=== PATIENT | male | born 1965 | race Caucasian/White ===

== ENCOUNTER 2018-03-26 06:33 | Day surgery (SDC) | payer BC ==
[2018-03-26] MEDS ORDERED: LIDOCAINE 2% MDV (20MG/ML) 20ML VIAL IV ONE (06:34)
[2018-03-26] MEDS ORDERED: PROPOFOL 10 MG/ML VIAL IV ONE (06:34)
--- NOTE | 2018-03-29 12:40 | Operative Note ---
DATE OF SURGERY: 03/26/2018 SURGEON: Cassie Burkett MD OPERATION: COLONOSCOPY. INDICATIONS: This is a 52-year-old male with average risk for colorectal cancer who presented for screening colonoscopy. POSTOPERATIVE DIAGNOSES: 1. A 3 mm descending colon polyp that was removed by cold biopsy forceps. 2. A 3 mm sessile polyp in the sigmoid colon that was removed by cold biopsy forceps. ANESTHESIA: Sedation is per Anesthesia. Pulse oximetry was monitored throughout the procedure to maintain O2 saturation of 90% or greater. Supplemental oxygen was administered via nasal cannula. Cardiac and vital signs were monitored throughout the duration of the procedure, and they were stable. The procedure of colonoscopy and risks and alternatives of the procedure, including the risk of bleeding and perforation, among others, were explained to the patient who voiced understanding and agreed to have the procedure done. Physical examination was performed, and the patient was found stable for sedation. PROCEDURE: The patient was placed in the left lateral position. Sedation was initiated. A digital rectal exam was performed and showed some external hemorrhoids with no palpable rectal masses. An Olympus PCF-180AL colonoscope was then inserted into the rectum under direct visualization. It was advanced to the cecum without difficulty. The ileocecal valve and appendiceal orifice were identified and photographed. The colonic mucosa was carefully examined upon introduction of the colonoscope. There were no lesions noted. The bowel preparation was good. The colonoscope was then withdrawn while carefully examining the colonic mucosal surfaces. The cecum, ascending colon, and transverse colon appeared normal. In the descending colon was a 3 mm sessile polyp that was noted and was removed by cold biopsy forceps. In the sigmoid colon was another 3 mm polyp that was removed by cold biopsy forceps. There were no other lesions noted. The colonoscope was then withdrawn into the rectum. Retroflexion was performed and grade 1 internal hemorrhoids were noted. The colonoscope was then withdrawn and the procedure was terminated. The patient tolerated the procedure well without any immediate complications. The patient remained with stable vital signs and was transferred to the recovery room. RECOMMENDATIONS: 1. The patient should be on a high-fiber diet. 2. The patient is to have a repeat colonoscopy for surveillance in 5 or 10 years depending on the histology of the polyps. Thank you for allowing me to participate in the care of your patient. CC: MD DENNY Tran
== END 2018-03-26 08:40 | disposition home or self-care (01) ==
LOC: HOP 06:33
PROVIDERS: ATTEND Internal Medicine Gastroenterology
DX: Z12.11 Encounter for screening for malignant neoplasm of colon (principal); D12.4 Benign neoplasm of descending colon; D12.5 Benign neoplasm of sigmoid colon

== ENCOUNTER 2019-06-25 19:13 | Emergency (ER) | payer BC ==
--- NOTE | 2019-06-25 19:52 | Emergency Department Record ---
History of Present Illness - General Chief Complaint: Fall Injury Stated Complaint: FELL 10 FT FROM TREE STAND Time Seen by Provider: 06/25/19 19:37 Source: Patient, Family Mode of Arrival: Ambulatory Limitations: No limitations - History of Present Illness Initial Comments: pt fell 10 ft out of a tree blind 30hrs ago. he landed on his back. he did not hit his head or injure his neck. he has pain in his luq and l flank. 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: No Place Fall Occurred: Home Loss of Consciousness: None Prolonged Down Time?: No Symptoms Prior to Fall: None Location: Back, Abdomen Severity scale (1-10): 7 Quality: Aching, Stabbing Associated Symptoms: Abdominal pain - [place] Coma Scale Eye Response: (4) Open spontaneously Motor Response: (6) Obeys commands Verbal Response: (5) Oriented Chanel Total: 15 - Related Data Allergies Allergy/AdvReac Type Severity Reaction Status Date / Time penicillin Allergy PT UNSURE Unverified 04/23/18 10:54 OF REACTION venom-honey bee Allergy CHEST PAIN Unverified 04/23/18 10:54 [bee venom (honey bee)] Travel Screening - Travel/Exposure Within Last 30 Days Have you traveled within the last 30 days?: No - Travel/Exposure Within Last Year Have you traveled outside the [place] in the last year?: No - Additonal Travel Details Have you been exposed to anyone with a communicable illness?: No - Travel Symptoms Symptom Screening: None Review of Systems Reviewed: No additional complaints except as noted below Constitutional: Reports: As per HPI. Denies: Chills, Fever, Malaise, Night sweats, Weakness, Weight change Eyes: Reports: As per HPI. Denies: Eye discharge, Eye pain, Photophobia, Vision change ENT: Reports: As per HPI. Denies: Congestion, Dental pain, Ear pain, Epistaxis, Hearing loss, Throat pain Respiratory: Reports: As per HPI. Denies: Cough, Dyspnea, Hemoptysis, Stridor, Wheezes Cardiovascular: Reports: As per HPI. Denies: Arrhythmia, Chest pain, Dyspnea on exertion, Edema, Murmurs, Orthopnea, Palpitations, Paroxysmal nocturnal dyspnea, Rheumatic Fever, Syncope Endocrine: Reports: As per HPI. Denies: Fatigue, Heat or cold intolerance, Polydipsia, Polyuria Gastrointestinal: Reports: As per HPI, Abdominal pain. Denies: Constipation, Diarrhea, Hematemesis, Hematochezia, Melena, Nausea, Vomiting Genitourinary: Reports: As per HPI. Denies: Dysuria, Frequency, Hematuria, Incontinence, Retention, Testicular pain, Testicular mass, Urgency Musculoskeletal: Reports: As per HPI. Denies: Arthralgia, Back pain, Gout, Joint swelling, Myalgia, Neck pain Skin: Reports: As per HPI. Denies: Bruising, Change in color, Change in hair/nails, Lesions, Pruritus, Rash Neurological: Reports: As per HPI. Denies: Abnormal gait, Confusion, Headache, Numbness, Paresthesias, Seizure, Tingling, Tremors, Vertigo, Weakness Psychiatric: Reports: As per HPI. Denies: Anxiety, Auditory hallucinations, Depression, Homicidal thoughts, Suicidal thoughts, Visual hallucinations Hematological/Lymphatic: Reports: As per HPI. Denies: Anemia, Blood Clots, Easy bleeding, Easy bruising, Swollen glands Past Medical History - SOCIAL HISTORY Smoking Status: Current every day smoker Alcohol Use: None Drug Use: None - RESPIRATORY Hx Respiratory Disorders: Yes Hx Sleep Apnea: Yes Hx of CPAP: Yes - CARDIOVASCULAR Hx Cardio Disorders: No - NEURO Hx Neuro Disorders: Yes Hx Neuropathy: Yes (hands) - GI Hx GI Disorders: Yes Hx Pancreatitis: Yes Hx Rectal Bleeding: Yes (hemorrhoids) - Hx Genitourinary Disorders: Yes Hx Kidney Stones: Yes - ENDOCRINE Hx Endocrine Disorders: No - MUSCULOSKELETAL Hx Musculoskeletal Disorders: No - PSYCH Hx Psych Problems: No - HEMATOLOGY/ONCOLOGY Hx Hematology/Oncology Disorders: No Family Medical History Any Significant Family History?: Yes Hx Cancer: Mother *Cancer Comment: ovarian Hx Diabetes: Father, Mother *Diabetes Comment: hypo-glycemia- mother Hx HTN: Father Hx Stroke: Grandparents Physical Exam - General General Appearance: Alert, Oriented x3, Cooperative, Mild distress - Head Head exam: Normal inspection - Eye Eye exam: Normal appearance, PERRL, EOMI Pupils: Normal accommodation - ENT ENT exam: Normal exam, Mucous membranes moist, Normal external ear exam, Normal orophraynx Ear exam: Normal external inspection. negative: External canal tenderness Nasal Exam: Normal inspection. negative: Discharge, Sinus tenderness Mouth exam: Normal external inspection, Tongue normal Teeth exam: Normal inspection. negative: Dental caries Throat exam: Normal inspection. negative: Tonsillar erythema, Tonsillar exudate - Neck Neck exam: Normal inspection, Full ROM. negative: Tenderness - Respiratory Respiratory exam: Normal lung sounds bilaterally. negative: Respiratory distress - Cardiovascular Cardiovascular Exam: Regular rate, Normal rhythm, Normal heart sounds - GI/Abdominal GI/Abdominal exam: Soft, Normal bowel sounds, Tenderness - Rectal Rectal exam: Deferred - exam: Deferred - Extremities Extremities exam: Normal inspection, Full ROM, Normal capillary refill. negative: Tenderness - Back Back exam: Reports: CVA tenderness (L), Full ROM, Muscle spasm, Paraspinal tenderness, Tenderness. Denies: Rash noted - Neurological Neurological exam: Alert, CN II-XII intact, Normal gait, Oriented X3 - Psychiatric Psychiatric exam: Normal affect, Normal mood - Skin Skin exam: Dry, Intact, Normal color, Warm Course Vital Signs 06/25/19 19:25 Temperature 98.8 F Pulse Rate [ 75 Left] Respiratory 16 Rate Blood Pressure 164/93 [Left Arm] Pulse Ox 95 Medical Decision Making - Lab Data Result diagrams: 06/25/19 20:00 06/25/19 19:41 Disposition Disposition: Discharge Clinical Impression: Multiple contusions of trunk Qualifiers: Encounter type: initial encounter Qualified Code(s): S20.20XA - Contusion of thorax, unspecified, initial encounter Disposition: Home, Self-Care Condition: (1) Good Instructions: Contusion in Adults (ED) Additional Instructions: follow up with family doctor. return sooner if worse. ice to sore areas. motrin with food Forms: Patient Portal Access Quality - Quality Measures Quality Measures: N/A - Blood Pressure Screening Does Patient Have Any of the Following: No Blood Pressure Classification: Hypertensive Reading Systolic Measurement: 164 Diastolic Measurement: 93 Screening for High Blood Pressure: < First Hypertensive BP, F/U Documented > [[id number]] First Hypertensive Follow-up Interventions: Follow-up with rescreen GT 1 day and LT 4 weeks.
[2019-06-25 20:15] LABS: ABSOLUTE NEUTROPHIL COUNT 6.43; BASO % 0.5 % (0-6); EOS % 2.5 % (0-6); GRAN % 62.9 % (47-80); HEMATOCRIT 44.7 % (42.0-52.0); HEMOGLOBIN 14.6 gm/dl (14.0-18.0); LYMPH % 27.2 % (16-45); MEAN CELL VOLUME 93.9 fl (81-97); MEAN CORPUSCULAR HEMOGLOBIN 30.7 pg (27-33); MEAN CORPUSCULAR HGB CONC 32.7 g/dl (32-36); MEAN PLATELET VOLUME 10.7 fl (7.4-10.4); MONO % 6.9 % (0-9); PLATELET COUNT 256 K/uL (130-400); RED BLOOD COUNT 4.76 M/uL (4.40-5.70); WHITE BLOOD COUNT W/O DIFF 10.2 K/uL (4.2-12.2)
[2019-06-25 20:16] LABS: URINE APPEARANCE CLEAR; URINE BILIRUBIN NEGATIVE (NEGATIVE); URINE BLOOD NEGATIVE (NEGATIVE); URINE COLOR YELLOW; URINE GLUCOSE (UA) NEGATIVE (NEGATIVE); URINE KETONE NEGATIVE (NEGATIVE); URINE LEUKOCYTE ESTERASE NEGATIVE (NEGATIVE); URINE NITRITE NEGATIVE (NEGATIVE); URINE PROTEIN NEGATIVE (NEGATIVE); URINE UROBILINOGEN 0.2 E.U./dL (0.20 - 1.00)
[2019-06-25 20:24] LABS: BLOOD UREA NITROGEN 11 mg/dL (6-20); CREATININE 0.9 mg/dL (0.7-1.2); EST GLOMERULAR FILTRATION RATE > 60 mL/min
[2019-06-25 20:27] LABS: GLUCOSE,RANDOM 94 mg/dL (74-109)
--- NOTE | 2019-06-25 21:10 | CT SCAN REPORT ---
EXAMINATION: CHEST/ABD/PEL W CONTRAST EXAM DATE: 06/25/2019 8:53 PM TECHNIQUE: CT imaging of the chest, abdomen and pelvis with intravenous contrast. Reconstructions in the axial, coronal and sagittal plane. Images saved on PACS. INDICATION: fell 10 ft COMPARISON: 02/18/2015 ENCOUNTER: Not applicable FINDINGS: Chest CT: Normal appearance of the mediastinal structures. No evidence of pericardial or pleural fluid. Mild linear atelectasis lingula. No sign of pulmonary contusion or pneumothorax. Bony structures appear intact. Abdomen CT: No evidence of traumatic injury. Normal enhancement of solid organs. No evidence of bowel obstruction. No sign of inflammatory process. No hydronephrosis or dilatation ureters. No evidence of fracture. Pelvis CT: No free fluid. No sign of traumatic injury. No evidence of fracture. IMPRESSION: No evidence of traumatic injury on CT imaging of the chest, abdomen and pelvis. Dictated by: Leoncio Drummond MD on 06/25/2019 8:58 PM. .
[2019-06-25] MEDS ORDERED: HYDROCODONE/APAP 5/325MG TABLET PO ONE (21:31)
== END 2019-06-25 21:47 | disposition home or self-care (01) ==
LOC: ER 19:13
DX: S20.20XA Contusion of thorax, unspecified, initial encounter (principal); R10.12 Left upper quadrant pain; M54.5 Low back pain; W14.XXXA Fall from tree, initial encounter; Y92.007 Garden or yard of unspecified non-institutional (private) residence as the place of occurrence of the external cause; F17.210 Nicotine dependence, cigarettes, uncomplicated
CPT/HCPCS: 71260; 74177; 80048; 81003; 85025; 99284